=== PATIENT | female | born 1955 | race Caucasian/White ===

== ENCOUNTER 2022-08-28 11:04 | Emergency (ER) | payer BC ==
[~2022-08-28] VITALS: Ht 170.2 cm; Wt 89.1 kg
[2022-08-28] MEDS ORDERED: normal saline 1000ML IV soln IVB ONE (11:10)
[2022-08-28] MEDS ORDERED: ondansetron/PF 4mg/2ml inj IV ONE (11:10)
[2022-08-28 11:58] LABS: BASOPHILS # (AUTO) 0.1 X10'3 (0-0.2); BASOPHILS % (AUTO) 1.1 % (0-1); EOSINOPHILS # (AUTO) 0.1 X10'3 (0-0.9); EOSINOPHILS % (AUTO) 2.3 % (0-6); HEMOGLOBIN 13.5 g/dl (12.0-16.0); LYMPHOCYTES # (AUTO) 1.4 X10'3 (1.1-4.8); LYMPHOCYTES % (AUTO) 27.8 % (21-51); MEAN CORPUSCULAR HEMOGLOBIN 30.3 PG (27.0-31.0); MEAN CORPUSCULAR HGB CONC 32.9 g/dL (33.0-36.5); MEAN CORPUSCULAR VOLUME 92.1 FL (78-98); MONOCYTES # (AUTO) 0.4 X10'3 (0-0.9); MONOCYTES % (AUTO) 7.1 % (2-12); NEUTROPHILS # (AUTO) 3.2 X10'3 (1.8-7.7); NEUTROPHILS % (AUTO) 61.7 % (42-75); PLATELET COUNT 401 X10'3 (140-440); RED BLOOD COUNT 4.45 X10'6 (4.20-5.60); RED CELL DISTRIBUTION WIDTH 12.6 % (11.5-14.5); WHITE BLOOD COUNT 5.2 X10'3 (4.5-11.0)
[2022-08-28 12:10] LABS: ALANINE AMINOTRANSFERASE 16 U/L (12-78); ALBUMIN 3.3 G/DL (3.4-5.0); ALBUMIN/GLOBULIN RATIO 1.1 (1.1-1.5); ALKALINE PHOSPHATASE 97 IU/L (46-116); ANION GAP 10 (8-16); ASPARTATE AMINO TRANSFERASE 17 U/L (10-37); BILIRUBIN,TOTAL 0.3 MG/DL (0.1-1.0); BLOOD UREA NITROGEN 9 MG/DL (7-18); BUN/CREATININE RATIO 12.2 (6.6-38.0); CALCIUM 8.8 MG/DL (8.5-10.1); CHLORIDE 109 MMOL/L (99-107); CREATININE 0.74 MG/DL (0.40-0.90); GLUCOSE 96 MG/DL (70-104); SODIUM 142 MMOL/L (135-145); TOTAL PROTEIN 6.3 G/DL (6.4-8.2); eGFR 79 ML/MIN
[2022-08-28] MEDS ORDERED: dexamethasone sod phosphate 10mg/ml inj IV STA (13:51)
[2022-08-28 13:53] LABS: CLARITY,URINE CLEAR (Clear); COLOR,URINE YELLOW (Yellow); GLUCOSE, URINE NEGATIVE (Neg); KETONES,URINE NEGATIVE (Neg); LEUKOCYTE ESTERASE ,URINE SMALL (Neg); NITRITES, URINE NEGATIVE (Neg); OCCULT BLOOD,URINE NEGATIVE (Neg); PH,URINE 6.5 (4.8-8.0); PROTEIN,URINE NEGATIVE (Neg); UROBILINOGEN,URINE 0.2 E.U/dL (0.2-1.0)
[2022-08-28] MEDS ORDERED: ketorolac trometh. 30mg/ml inj. IV ONE (13:55)
[2022-08-28 14:08] LABS: RBC,URINE NONE SEEN /HPF (0-2); UA COLLECTION TYPE CLN CATCH MIDSTREAM
[2022-08-28 14:09] LABS: BACTERIA,URINE 1+ /HPF (Neg); SQUAMOUS EPITHELIAL CELL,UR FEW /LPF (FEW); TRANSITIONAL EPI CELLS,URINE FEW /HPF
[2022-08-28 16:46] VITALS: BP 128/76
== END 2022-08-28 16:48 | disposition home or self-care (01) ==
LOC: ER 11:04
DX: G43.809 Other migraine, not intractable, without status migrainosus (principal); Z88.2 Allergy status to sulfonamides
CPT/HCPCS: 36415; 80053; 81001; 85025; 87088; 96374; 96375; 99284; J1100; J1885; J2405; J7030

== ENCOUNTER 2022-09-24 17:08 | Emergency (ER) | payer BC ==
[~2022-09-24] VITALS: Ht 170.2 cm; Wt 85.8 kg
[2022-09-24 17:21] VITALS: BP 144/82
[2022-09-24 18:56] LABS: CLARITY,URINE SLIGHTLY CLOUDY (Clear); COLOR,URINE YELLOW (Yellow); GLUCOSE, URINE NEGATIVE (Neg); KETONES,URINE NEGATIVE (Neg); LEUKOCYTE ESTERASE ,URINE SMALL (Neg); NITRITES, URINE NEGATIVE (Neg); OCCULT BLOOD,URINE NEGATIVE (Neg); PH,URINE 5.5 (4.8-8.0); PROTEIN,URINE NEGATIVE (Neg); UROBILINOGEN,URINE 0.2 E.U/dL (0.2-1.0)
[2022-09-24 18:57] LABS: UA COLLECTION TYPE NON-SPECIFIED
[2022-09-24] MEDS ORDERED: amox tr/potassium clavulanate 875/125mg TAB PO ONE (19:00)
[2022-09-24 19:01] LABS: WBC,URINE 0-4 /HPF (0-4)
[2022-09-24 19:02] LABS: BACTERIA,URINE FEW /HPF (Neg); RBC,URINE NONE SEEN /HPF (0-2); SQUAMOUS EPITHELIAL CELL,UR FEW /LPF (FEW); TRANSITIONAL EPI CELLS,URINE FEW /HPF
[2022-09-24] MEDS ORDERED: AMOX-117 PO (19:04)
== END 2022-09-24 19:25 | disposition home or self-care (01) ==
LOC: ER 17:11
DX: N39.0 Urinary tract infection, site not specified (principal); G89.29 Other chronic pain; M54.9 Dorsalgia, unspecified; I10 Essential (primary) hypertension; Z88.2 Allergy status to sulfonamides; Z79.899 Other long term (current) drug therapy
CPT/HCPCS: 81001; 87088; 99283